=== PATIENT | male | born 1945 | race Caucasian/White ===

== ENCOUNTER → 2020-11-02 06:58 | Outpatient (CLI) | payer MEDICARE, SELFPAY ==
[2020-11-02 20:54] LABS: SARS-CoV-2 RNA PCR Negative
== END ==
PROVIDERS: PCP Family Medicine; Visit Provider Plastic Surgery
DX: Z01.812 Encounter for preprocedural laboratory examination (principal); Z20.822 Contact with and (suspected) exposure to COVID-19
CPT/HCPCS: C9803; U0003; U0005

== ENCOUNTER 2020-11-06 00:45 | Day surgery (SDC) | payer MEDICARE, SELFPAY ==
[2020-10-29 09:31] VITALS: BMI 31.4
[2020-11-06 06:58] LABS: Glucose Point of Care 176 (65-105)
[2020-11-06] MEDS: LACTATED RINGERS 1,000 ML 30 ML IV CONT ×2 (07:00→09:15)
--- NOTE | 2020-11-06 07:08 | WPDHPUPDATE1 ---
History and Physical Update Update Date/Time: 11/06/20 07:08 History and Physical has been reviewed, including an updated exam of the patient. There are NO changes in the patient's condition. Risks, benefits, and alternatives have been discussed and questions answered. Patient agrees to proceed with procedure.
--- NOTE | 2020-11-06 07:09 | WPDANESEPPF ---
Anes - Initial Pre Proc Eval Procedure: Operation Date: 11/06/20 08:15 Proposed Procedures p Excision Of Basal Cell Carcinoma Right Upper Nasal Ala With Frozen Section And Local Tissue Transfer - Deven Lin MD Date/Time: 11/06/20 07:09 Surgeon: Deven Lin MD Pre Op Diagnosis: basal cell carcinoma right upper nasal ala Patient Data Age: 74 Gender: M Height: 1.85 m Weight: 58 kg Allergies Allergy/AdvReac Type Severity Reaction Status Date / Time No Known Allergies Allergy Verified 10/29/20 09:26 Home Medications Medication Instructions Recorded Confirmed Type amlodipine [Norvasc] 5 mg PO HS 05/23/19 10/29/20 History citalopram 20 mg PO QAM 05/23/19 10/29/20 History glipizide 10 mg PO BID 05/23/19 10/29/20 History lisinopril 40 mg PO QAM 05/23/19 10/29/20 History lovastatin 40 mg PO QPM 05/23/19 10/29/20 History metformin 1,000 mg PO BID 05/23/19 10/29/20 History Laboratory Tests 11/06/20 06:54 POC Capillary Glucose 176 mg/dl H mg/dl (65-105) Patient hx anesthesia problems: none Family hx anesthesia problems: none PMFSH Past Medical History Medical History (Updated 11/06/20 @ 07:11 by Richard Jasso DO) Anxiety Diabetes type 2, controlled GERD (gastroesophageal reflux disease) Hyperlipidemia Hypertension Interstitial lung disease mild ARAVIND (obstructive sleep apnea) CPAP Surgical History Surgical History (Updated 11/06/20 @ 07:11 by Richard Jasso DO) History of cholecystectomy Social History Social History (System 05/21/20 @ 14:19 by Meg Griffin) Smoking status: Never smoker Alcohol intake: current Drinks per week: 2 Alcohol use details: 1-2 BEERS/WEEK Substance use: never Living arrangements: with family Additional living arrangements comments: Spiritual care concerns: No Anes - Eval Final PreProcedure Day of Procedure 11/06/20 07:09 Heart: regular rate and rhythm Lungs: clear to auscultation and normal air movement Airway: Mallampati scale class II Neurological: alert and oriented Last oral intake: >/= 8 hours ASA classification: III Emergent: no Anesthetic plan: proceed Anesthesia type and monitoring: general GIVS and LMA and standard monitoring Informed Consent: The patient's anesthetic plan and its attendant risks and benefits were discussed with the patient/family/POA. Questions were solicited and answers provided to the satisfaction of the patient/family/POA.
--- NOTE | 2020-11-06 08:34 | SUR.OPER ---
frozen section sent with [facility] rec'd by petr at [phone]
[2020-11-06] MEDS: LIDO 1%/EPINEPHRINE 1:100,000 50 ML VIAL INFILTRATE (08:42)
[2020-11-06 09:15] VITALS: BP 135/68; PULSE 66; RESP 12; O2SAT 97
--- NOTE | 2020-11-06 09:30 | PM.OP ---
Procedure Note - Brief Procedure Note - Brief Date of procedure: 11/06/20 Pre-op diagnosis: basal cell carcinoma right upper nasal ala Post-op diagnosis: same Procedure performed: 1 cm excision of BCC of right nasal ala with FS and Ltt 2 cm. Anesthesia: MAC Surgeon: Deven Lin MD Sales And Marketing Coordinator: Morgan Motta Estimated blood loss (mL): 1 Drains: No Packing: No Pathology: yes Complications: None Condition: stable Disposition: same day
--- NOTE | 2020-11-06 09:33 | PM.PROC ---
Procedure Note - Detailed Date of procedure: 11/06/20 Pre-op diagnosis: basal cell carcinoma right upper nasal ala Post-op diagnosis: same Procedure performed: 1 cm excision of basal cell carcinoma of the right nasal ala with frozen section and local tissue transfer 2 sq cm Description of procedure: The site was marked in the holding area. The patient was transferred to the operating room placed supine on the operating table. A time-out was held and confirmed. He was given IV sedation and the face was prepped and draped in usual fashion. The site was identified as a small punch biopsy site. This was marked with a pen and locally infiltrated with 1% lidocaine with epinephrine. The lesion was taken off through full-thickness of skin was marked at its most superior aspect for orientation and sent to the pathologist. The pathologist reports there was a small focus of basal cell carcinoma margins were free. The wound which lies over the external valve was undermined 5 mm in all directions. An incision was made parallel the dorsum of the nose along the side of the nose. This was undermined and easily advanced toward the tip to resurface the site without deformation of the ala or the internal valve. Closure was done with intradermal 4-0 Vicryl and interrupted 6 0 nylon tolerated well The patient is being discharged home with a prescription for tramadol 8. And cephalexin 500 mg b.i.d. for 5 days Anesthesia: MAC Surgeon: Deven Lin MD Boiler House Supervisor: Morgan Estimated blood loss (mL): 2 Drains: No Packing: No Pathology: yes Complications: No immediate complications Condition: stable Disposition: same day
[2020-11-06 09:45] VITALS: BP 149/73; PULSE 58; RESP 16
[2020-11-06 09:56] LABS: Glucose Point of Care 176 (65-105)
[2020-11-06 10:07] VITALS: BP 146/48; PULSE 59; RESP 18
== END 2020-11-06 10:10 | disposition home or self-care (01) ==
PROVIDERS: PCP Family Medicine; Visit Provider Plastic Surgery
PROC: (CPT 14060; principal; 2020-11-06 08:15)
DX: C44.311 Basal cell carcinoma of skin of nose (principal); E11.9 Type 2 diabetes mellitus without complications; Z79.84 Long term (current) use of oral hypoglycemic drugs; E78.5 Hyperlipidemia, unspecified; G47.33 Obstructive sleep apnea (adult) (pediatric); F41.9 Anxiety disorder, unspecified
CPT/HCPCS: 14060; 82948; 88305; 88331; A9270; J0131; J1100; J1885; J2370; J2405; J2704; J3010; J7120